=== PATIENT | male | born 1970 | race Caucasian/White ===

== ENCOUNTER 2017-02-01 18:13 | Emergency (ER) | payer MEDICAID ==
[~2017-02-01] VITALS: Ht 170.2 cm; Wt 88.5 kg
--- NOTE | 2017-02-01 18:25 | NUR ---
PT BIB [facility] C/O CP PRESSURE/TIGHTNESS "LIKE SQUEEZING" RADIATING TO L ARM, NO PROVOCATION, X2 DAYS INTERMITTENTLY. REPORTS PAIN 05/26, RESOLVED TO 12/24 APPLIED BEHAVIOR SPECIALIST S/P ASA AND NITRO ADMIN FROM RESCUE. NAD NOTED. RESP EVEN UNLABORED. SKIN WARM NONDIAPHORETIC. DENIES N/V/D. DENIES PALPITATIONS. DENIES SOB. IN ER BED 09 ON MONITOR.
[2017-02-01 19:06] LABS: BASOPHILS % (AUTO) 0.6 % (0.0-2.0); EOSINOPHILS # (AUTO) 0.1 /CMM (0.0-0.7); EOSINOPHILS % (AUTO) 1.5 % (0.0-6.0); HEMATOCRIT 42 % (39-51); HEMOGLOBIN 14.4 g/dL (13.5-17.5); LYMPHOCYTES # (AUTO) 2.1 /CMM (0.8-4.8); LYMPHOCYTES % (AUTO) 32.2 % (20.0-44.0); MEAN CORPUSCULAR HEMOGLOBIN 32 PG (26.0-33.0); MEAN CORPUSCULAR HGB CONC 35 g/dl (31.0-36.0); MEAN CORPUSCULAR VOLUME 92 fL (80-96); MONOCYTES # (AUTO) 0.4 /CMM (0.1-1.30); MONOCYTES % (AUTO) 6.9 % (2.0-12.0); NEUTROPHILS # (AUTO) 3.9 /CMM (1.8-8.9); NEUTROPHILS % (AUTO) 58.8 % (43.0-81.0); PLATELET COUNT (AUTO) 194 /CMM (150-450); RDW COEFFICIENT OF VARIATION 12.6 (11.5-15.0); RED BLOOD CELL COUNT(AUTO) 4.56 MIL/uL (4.5-6.0); WHITE BLOOD COUNT (AUTO) 6.5 K/uL (4.3-11.0)
[2017-02-01 19:20] LABS: CALCIUM, SERUM 8.3 mg/dL (8.5-10.1); CARBON DIOXIDE 26 mmol/L (21-32); CHLORIDE 104 mmol/L (98-107); GFR 81 mL/min (>60); GLUCOSE 94 mg/dL (74-106); INR 1.05 (0.87-1.13); POTASSIUM 3.9 mmol/L (3.5-5.1); PROTHROMBIN TIME 10.9 SECS (9.5-12.7); SODIUM SERUM 139 mmol/L (136-145); UREA NITROGEN, BLOOD 12 mg/dL (7-18)
[2017-02-01] MEDS ORDERED: MORPHINE SULFATE INJ 4 MG/ML DISP.SYRIN ONE (19:23)
[2017-02-01] MEDS ORDERED: ONDANSETRON HCL/PF 4 MG/2 ML VIAL ONE (19:23)
[2017-02-01 19:27] LABS: ALBUMIN 3.7 g/dL (3.4-5.0); BILIRUBIN,DIRECT 0.1 mg/dL (0.0-0.2); BILIRUBIN,TOTAL 0.5 mg/dL (0.2-1.0); TOTAL PROTEIN, SERUM 6.9 g/dL (6.4-8.2)
[2017-02-01 19:29] LABS: TROPONIN I < 0.017 ng/mL (0.00-0.056)
[2017-02-01] MEDS: MORPHINE SULFATE INJ 2 MG/ML DISP.SYRIN IV ONE (19:31)
[2017-02-01] MEDS: ONDANSETRON HCL/PF 4 MG/2 ML VIAL IV ONE (19:32)
--- NOTE | 2017-02-01 19:50 | NUR ---
REPORTS RELIEF OF PAIN S/P MORPHINE. NAD NOTED. VSS. ALL NEEDS ATTENDED TO.
--- NOTE | 2017-02-01 20:34 | NUR ---
PT REPORTS CP OF THE SAME CHARACTER UPON PRESENTATION, WAS 8 NOW "WENT DOWN SOME". NO PROVOCATION. MD NOTIFIED. VSS. SKIN WARM NONDIAPHORETIC. DOES NOT APPEAR TO BE IN AN PAIN OR ACUTE DISTRESS.
--- NOTE | 2017-02-01 21:36 | NUR ---
RESTING QUIETLY, CP 3/10, NAD NOTED. VSS.
[2017-02-01 22:36] VITALS: BP 118/68
--- NOTE | 2017-02-01 22:37 | NUR ---
Patient discharged to home in stable condition. Written and verbal after care instructions given. Patient verbalizes understanding of instruction. IV removed. Catheter intact and site benign. Pressure and 4x4 applied to site. No bleeding noted. AMBULATORY WITH STEADY GIAT.
== END 2017-02-01 22:36 | disposition home or self-care (01) ==
LOC: ER 18:14
DX: R07.9 Chest pain, unspecified (principal); F17.200 Nicotine dependence, unspecified, uncomplicated
CPT/HCPCS: 36415; 71010-TC; 80048-TC; 80076-TC; 84484-TC; 85025-TC; 85730-TC; A4606; J2270; J2405; Z7610

== ENCOUNTER 2017-02-06 20:04 | Emergency (ER) | payer MEDICAID ==
[~2017-02-06] VITALS: Ht 165.1 cm; Wt 81.6 kg
--- NOTE | 2017-02-06 20:05 | NUR ---
TO BED 6 A 46YO BIBRA 61 FROM HOME C/O MIDSTERNAL CP RADIATES TO LEFT ARM SINCE 2PM, NITRO SPRAY AND ASA 325 GIVEN BY EMS. PATIENT IS AAOX4, NO SOB. BREATHING EVEN AND UNLABORED. VSS. NSR ON THE MONITOR. REPORTS PAIN AT 4/10. GOWNED. INITIATED COMFORT MEASURES. 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 AWAITING FOR ER MD FRAZIER.
[2017-02-06] MEDS ORDERED: MORPHINE SULFATE INJ 4 MG/ML DISP.SYRIN ONE (20:09)
[2017-02-06] MEDS ORDERED: NITROGLYCERIN 0.4 MG/TAB BOTTLE ONE (20:09)
[2017-02-06] MEDS ORDERED: ASPIRIN 81 MG TAB.CHEW ONE (20:09)
[2017-02-06] MEDS ORDERED: ONDANSETRON HCL/PF 4 MG/2 ML VIAL ONE (20:09)
[2017-02-06 20:29] LABS: BASOPHILS # (AUTO) 0.1 /CMM (0.0-0.2); BASOPHILS % (AUTO) 0.8 % (0.0-2.0); EOSINOPHILS # (AUTO) 0.1 /CMM (0.0-0.7); EOSINOPHILS % (AUTO) 1.8 % (0.0-6.0); HEMATOCRIT 43 % (39-51); HEMOGLOBIN 13.8 g/dL (13.5-17.5); LYMPHOCYTES # (AUTO) 2.2 /CMM (0.8-4.8); MEAN CORPUSCULAR HEMOGLOBIN 29 PG (26.0-33.0); MEAN CORPUSCULAR HGB CONC 32 g/dl (31.0-36.0); MEAN CORPUSCULAR VOLUME 90 fL (80-96); MONOCYTES # (AUTO) 0.4 /CMM (0.1-1.30); MONOCYTES % (AUTO) 5.6 % (2.0-12.0); NEUTROPHILS # (AUTO) 4.2 /CMM (1.8-8.9); NEUTROPHILS % (AUTO) 60.8 % (43.0-81.0); PLATELET COUNT (AUTO) 219 /CMM (150-450); RDW COEFFICIENT OF VARIATION 12.7 (11.5-15.0); RED BLOOD CELL COUNT(AUTO) 4.78 MIL/uL (4.5-6.0)
[2017-02-06] MEDS ORDERED: ASPIRIN 81 MG TAB.CHEW PO ONE (20:30)
[2017-02-06] MEDS ORDERED: NITROGLYCERIN 0.4 MG/TAB BOTTLE SL ONE (20:30)
[2017-02-06] MEDS ORDERED: MORPHINE SULFATE INJ 2 MG/ML DISP.SYRIN IV ONE (20:30)
[2017-02-06] MEDS ORDERED: ONDANSETRON HCL/PF 4 MG/2 ML VIAL IVP ONE (20:30)
--- NOTE | 2017-02-06 20:30 | NUR ---
NITRO SL GIVEN X1 ONLY PATIENT REPORTED CHEST PAIN RELIEVED, SBP MAINTAINED >90.
[2017-02-06 20:42] LABS: CALCIUM, SERUM 8.3 mg/dL (8.5-10.1); CARBON DIOXIDE 28 mmol/L (21-32); CHLORIDE 106 mmol/L (98-107); CREATININE 0.9 mg/dL (0.6-1.3); GFR 91 mL/min (>60); GLUCOSE 92 mg/dL (74-106); POTASSIUM 3.6 mmol/L (3.5-5.1); SODIUM SERUM 139 mmol/L (136-145); UREA NITROGEN, BLOOD 16 mg/dL (7-18)
[2017-02-06 20:46] LABS: INR 1.01 (0.87-1.13); PROTHROMBIN TIME 10.5 SECS (9.5-12.7)
[2017-02-06 21:08] LABS: TROPONIN I < 0.017 ng/mL (0.00-0.056)
--- NOTE | 2017-02-06 21:59 | NUR ---
IV removed. Catheter intact and site benign. Pressure and 4x4 applied to site. No bleeding noted. Patient discharged to home in stable condition. Written and verbal after care instructions given. Patient verbalizes understanding of instruction. Patient is ambulatory, accompanied by family. No further complaits.
[2017-02-06 22:05] VITALS: BP 106/61
--- NOTE | 2017-02-06 22:06 | NUR ---
Note undone in EDM - 02/06/17 at 2206 by HFOX Patient discharged to home in stable condition. Written and verbal after care instructions given. Patient verbalizes understanding of instruction. IV removed. Catheter intact and site benign. Pressure and 4x4 applied to site. No bleeding noted. NAD NOTED. VSS.
== END 2017-02-06 22:06 | disposition home or self-care (01) ==
LOC: ER 20:06
DX: R07.89 Other chest pain (principal); Z79.82 Long term (current) use of aspirin; F17.210 Nicotine dependence, cigarettes, uncomplicated
CPT/HCPCS: 36415; 80048; 84484; 85025; 85730; 93005; 96374; 96375; 99285; A4606; J2270; J2405; Z7610